=== PATIENT | male | born 1935 | race Caucasian/White ===

== ENCOUNTER 2020-10-07 06:16 | Day surgery (SDC) | payer OTHER, BC ==
[2020-10-01 18:08] VITALS: BMI 27.2
[2020-10-07] MEDS ORDERED: POVIDONE-IODINE 5% OPHTHALMIC PREP 30 ML SOLUTION ONE (07:13)
[2020-10-07] MEDS ORDERED: ERYTHROMYCIN 0.5% OPHTHALMIC OINTMENT 3.5 GM TUBE ONE (07:13)
[2020-10-07] MEDS ORDERED: LIDOCAINE 1%/EPI 1:100000 (20 ML MULTI DOSE VIAL) ONE (07:13)
[2020-10-07] MEDS ORDERED: TETRACAINE 0.5% OPHTH SOLN 2 ML BOTTLE ONE (07:13)
[2020-10-07] MEDS ORDERED: SUCCINYLCHOLINE CHLORIDE 200 MG/10 ML SYRINGE ONE (07:32)
[2020-10-07] MEDS ORDERED: KETAMINE HCL 200 MG/20 ML VIAL ONE (07:32)
[2020-10-07] MEDS ORDERED: PROPOFOL 20 ML ONE ×3 (07:32)
[2020-10-07] MEDS ORDERED: MIDAZOLAM HCL 2 MG/2 ML SINGLE DOSE VIAL ONE (07:32)
[2020-10-07] MEDS ORDERED: ONDANSETRON 4 MG/2 ML VIAL ONE (07:44)
[2020-10-07] MEDS ORDERED: DEXAMETHASONE SOD PHOSPHATE 4 MG/1 ML VIAL ONE (07:44)
[2020-10-07] MEDS ORDERED: ceFAZolin SODIUM 1 GM VIAL ONE (07:51)
[2020-10-07] MEDS ORDERED: LABETALOL HCL 5 MG/1 ML (100MG/20 ML VIAL) ONE (08:26)
[2020-10-07] MEDS ORDERED: ONDANSETRON 4 MG/2 ML VIAL IVPUSH PRN (09:02)
[2020-10-07] MEDS ORDERED: oxyCODONE HCL 5 MG TABLET PO PRN (09:02)
[2020-10-07 09:11] VITALS: TEMP 97.1
[2020-10-07 10:20] VITALS: BP 167/93; PULSE 84
== END 2020-10-07 10:15 | disposition home or self-care (01) ==
LOC: FASU 06:16
PROVIDERS: ATTEND Ophthalmology
PROC: 08SN0ZZ Reposition Right Upper Eyelid, Open Approach (ICD-10-PCS; 2020-10-07)
PROC: 08SP0ZZ Reposition Left Upper Eyelid, Open Approach (ICD-10-PCS; principal; 2020-10-07 07:51)
DX: H02.423 Myogenic ptosis of bilateral eyelids (principal)
CPT/HCPCS: 94760